=== PATIENT | male | born 1995 | race Caucasian/White ===

== ENCOUNTER → 2019-09-21 11:38 | Outpatient (BNVA) | payer BC, SELFPAY | PROVIDERS: Family Provider Family Medicine; PCP Family Medicine; Visit Provider Nurse Practitioner | DX: J10.1 Influenza due to other identified influenza virus with other respiratory manifestations (principal); R05 Cough | CPT/HCPCS: 87804 ==

== ENCOUNTER → 2020-06-29 14:56 | Outpatient (BNVA) | payer BC, SELFPAY | PROVIDERS: Family Provider Family Medicine; PCP Family Medicine; Visit Provider Nurse Practitioner Family | DX: Z20.828 Contact with and (suspected) exposure to other viral communicable diseases (principal) | CPT/HCPCS: 87635 ==

== ENCOUNTER → 2020-08-17 14:48 | Outpatient (BNVA) | payer BC, SELFPAY | PROVIDERS: Family Provider Family Medicine; PCP Family Medicine; Visit Provider Nurse Practitioner Family | DX: Z20.828 Contact with and (suspected) exposure to other viral communicable diseases (principal); J06.9 Acute upper respiratory infection, unspecified | CPT/HCPCS: 87635 ==

== ENCOUNTER 2022-06-06 10:13 | Outpatient (RCR) | payer BC, SELFPAY | END 2022-06-14 16:48 | disposition home or self-care (01) | LOC: SPT 10:13 | PROVIDERS: PCP Family Medicine; Visit Provider Clinical Nurse Specialist Adult Health | DX: M54.16 Radiculopathy, lumbar region (principal) | CPT/HCPCS: 97161 ==

== ENCOUNTER → 2022-09-09 10:46 | Outpatient (BNVA) | payer OTHER, SELFPAY | PROVIDERS: PCP Family Medicine; Visit Provider Clinical Nurse Specialist Adult Health | DX: E03.9 Hypothyroidism, unspecified (principal); E78.00 Pure hypercholesterolemia, unspecified; E11.9 Type 2 diabetes mellitus without complications; I10 Essential (primary) hypertension | CPT/HCPCS: 80053; 80061; 82040; 82672; 83036; 84270; 84403; 84443; 85025 ==

== ENCOUNTER → 2022-10-12 14:44 | Outpatient (BNVA) | payer OTHER, SELFPAY | PROVIDERS: PCP Family Medicine; Visit Provider Family Medicine | DX: I10 Essential (primary) hypertension (principal); E11.9 Type 2 diabetes mellitus without complications; E03.9 Hypothyroidism, unspecified; E78.00 Pure hypercholesterolemia, unspecified | CPT/HCPCS: 80053; 80061; 83036; 84443 ==

== ENCOUNTER 2025-01-13 04:35 | Emergency (ER) | payer BC, SELFPAY ==
[2025-01-13] VITALS (7 sets, daily range): BP systolic 105–138; BP diastolic 55–91; PULSE 70–122; RESP 14–20; TEMP 36.4; O2SAT 93–98; BMI 39.3
--- NOTE | 2025-01-13 05:06 | US_ITS ---
WS: [id number] RIGHT UPPER QUADRANT ULTRASOUND HISTORY: ruq pain COMPARISON: None available. Liver: 14.8 cm in length. Normal size liver with moderate to severe hepatic steatosis. Coarse echotexture of the liver. The entire liver is not well visualized. Portal Vein: Normal hepatopetal flow with monophasic waveform. Gallbladder: Normally distended gallbladder with no stones or wall thickening. CBD: 0.5 cm Pancreas: Nonvisualized. Right kidney: 13.0 cm in length. Normal size and echogenicity. No hydronephrosis or mass. Aorta and IVC: Limited. No ascites. US/US gall bladder [id number] IMPRESSION: 1. Exam limited by body habitus. 2. Negative gallbladder. 3. Normal size liver with moderate to severe hepatic steatosis.
--- NOTE | 2025-01-13 05:07 | W.ED.ABDPA2 ---
Documented by User: Eran Carlos Samy, 01/13/25 05:11 HPI - Abdominal Pain General: Chief Complaint: Abdominal Pain Stated Complaint: ABD Pain\V\D\Hives Time Seen by Provider: 01/13/25 04:56 History of Present Illness: 30-year-old male patient with history of pulmonary stenosis. He also has diabetes and hypercholesterolemia and hypertension. He presents with right upper quadrant pain, several episodes of vomiting over the last 24 hours. He states that his symptoms started with diarrhea. He had multiple episodes of diarrhea day night, transition to vomiting yesterday with multiple episodes of vomiting. He has intermittent cramping right upper quadrant pain radiating into his back. He also broke out into hives this morning upon waking. The hives are quite itchy and widespread. He had been taking Zofran for the nausea and vomiting but when that was not working, his mom gave him the promethazine. He has had promethazine before without allergic reaction. He was told at 1 point that his liver enzymes were high, but he is not sure how high. No history of abdominal surgery. Related Data Home Medications ?Medication ?Instructions ?Recorded ?Confirmed diclofenac sodium 75 mg 75 mg PO BID 01/13/25 01/13/25 tablet,delayed release glyburide 5 mg tablet 5 mg PO QAM 01/13/25 01/13/25 olmesartan 40 mg-amlodipine 10 1 tab PO DAILY 01/13/25 01/13/25 mg-hydrochlorothiazide 25 mg tablet pantoprazole 20 mg tablet,delayed 20 mg PO DAILY 01/13/25 01/13/25 release tirzepatide 2.5 mg/0.5 mL 2.45 mg SUBCUT Q7D 01/13/25 01/13/25 subcutaneous pen injector (Roxanne) Previous Rx's ?Medication ?Instructions ?Recorded metformin 500 mg tablet 500 mg PO BID #180 tabs 06/29/22 flash glucose scanning reader #1 ea 10/18/22 (FreeStyle Laura 2 Elk) flash glucose sensor (FreeStyle #2 ea 10/18/22 Laura 2 Sensor kit) metoprolol tartrate 25 mg tablet 25 mg PO BID #180 tabs 01/15/24 ondansetron 4 mg disintegrating 4 mg PO Q6H PRN nausea and 01/13/25 tablet vomiting #14 tabs Allergies Allergy/AdvReac Type Severity Reaction Status Date / Time No Known Allergies Allergy Verified 09/09/22 10:18 PFSH ED PFSH: Medical History Diabetes HTN (hypertension) with goal to be determined Hypercholesteremia Hypothyroidism Surgical History Hx of left knee surgery Family History Other Diabetes Denies family history of CAD (coronary artery disease) Hypertension Social History Smoking and tobacco/nicotine status: current every day tobacco/nicotine user smokeless tobacco Alcohol intake: never Physical Exam Const: COMMON NORMALS: no acute distress GENERAL APPEARANCE: cooperative; not ill appearing and not frail appearing HENMT: COMMON NORMALS: normocephalic, atraumatic and Normal external nose present HEAD & SCALP: normocephalic and atraumatic FACE & SINUS: normal facial exam and face symmetric NOSE: Normal external nose present Eye: COMMON NORMALS: Equal, round and reactive pupils present and EOMs intact bilaterally PUPIL: Yes Equal, round and reactive pupils present Neck/C-Spine: GENERAL: Yes trachea midline Chest: CHEST: Yes Symmetrical chest wall rise Resp: COMMON NORMALS: normal respiratory effort, No retractions, No use of accessory muscles and clear to auscultation bilaterally AUSCULTATION: clear to auscultation bilaterally Cardio: COMMON NORMALS: regular rhythm RATE: tachycardic RHYTHM: regular rhythm GI: COMMON NORMALS: Normal to inspection, nondistended, normoactive bowel sounds present PALPATION: Yes Tenderness to palpation present (GI) Details: RUQ Extremity: COMMON NORMALS: no pedal edema Neuro: FELI COMA SCALE: document GCS findings [place] coma scale eye opening: Spontaneous Feli coma scale verbal response: Orientated [place] coma scale motor response: Obey commands Feli coma scale total score: 15 SENSORY EXAM: Yes extremities (intact) Psych: COMMON NORMALS: speech normal SPEECH: Yes normal speech Skin: COMMON NORMALS: no rashes or lesions noted GENERAL SKIN EXAM: no rashes or lesions noted Course Vital Signs: Vital signs: Vital Signs Temperature 97.6 F 01/13/25 04:57 Pulse Rate 74 01/13/25 10:18 Respiratory Rate 20 H 01/13/25 07:00 Blood Pressure 126/76 01/13/25 10:18 Pulse Oximetry 95 01/13/25 10:18 Oxygen Delivery Me thod Room Air 01/13/25 09:05 MDM - Abdominal Pain Medical Decision Making Labs and imaging are pending. He is given IV fluid, Toradol, Benadryl, Zofran, etc. He will be checked out at shift change. Lab Data 01/13/25 05:30 01/13/25 05:30 Labs/Radiology: Radiology Impressions Gallbladder Ultrasound 01/13/25 05:06 IMPRESSION: 1. Exam limited by body habitus. 2. Negative gallbladder. 3. Normal size liver with moderate to severe hepatic steatosis. Chest CTA 01/13/25 06:07 IMPRESSION: 1. Small amount of motion causing artifact in the inferior lingular artery. No pulmonary embolus felt to be present. 2. No acute process identified. Laboratory Results WBC 20.64 10^3/uL (3.29-11.43) H 01/13/25 05:30 RBC 5.69 10^6/uL (3.85-5.65) H 01/13/25 05:30 Hgb 17.30 g/dL (11.27-16.99) H 01/13/25 05:30 Hct 49.3 % (37-53) 01/13/25 05:30 MCV 86.6 fl (82-101) 01/13/25 05:30 MCH 30.4 pg (27-33) 01/13/25 05:30 MCHC 35.1 g/dL (30-55) 01/13/25 05:30 RDW 11.9 % (12.1-15.1) L 01/13/25 05:30 Plt Count 372 10^3/cmm (157-399) 01/13/25 05:30 MPV 10.7 fL (7.4-10.4) H 01/13/25 05:30 Neut % (Auto) 82.9 % 01/13/25 05:30 Lymph % (Auto) 10.6 % 01/13/25 05:30 Anderson % (Auto) 5.4 % 01/13/25 05:30 Eos % (Auto) 0.7 % 01/13/25 05:30 Baso % (Auto) 0.1 % 01/13/25 05:30 Neut # (Auto) 17.09 10^3/uL (1.8-7.7) H 01/13/25 05:30 Lymph # (Auto) 2.2 10^3/uL (0.8-4.8) 01/13/25 05:30 Anderson # (Auto) 1.1 10^3/uL (0.2-0.9) H 01/13/25 05:30 Eos # (Auto) 0.1 10^3/uL (0.0-0.8) 01/13/25 05:30 Baso # (Auto) 0.0 10^3/uL (0.0-0.1) 01/13/25 05:30 Nucleated RBC % (auto) 0 % 01/13/25 05:30 Nucleated RBCs # 0.0 /100WBC 01/13/25 05:30 D-Dimer 11.81 ug/mLFEU (0-0.59) H 01/13/25 05:30 Sodium 135 mmol/L (136-145) L 01/13/25 05:30 Potassium 4.7 mmol/L (3.5-5.1) 01/13/25 05:30 Chloride 97 mmol/L (98-107) L 01/13/25 05:30 Carbon Dioxide 20 mmol/L (22-29) L 01/13/25 05:30 Anion Gap 22.7 (5-19) H 01/13/25 05:30 BUN 18 mg/dL (6-20) 01/13/25 05:30 Creatinine 1.4 mg/dL (0.7-1.2) H 01/13/25 05:30 GFR Calculation 60.3 mL/min (90-130) L 01/13/25 05:30 Glucose 273 mg/dL (65-115) H 01/13/25 05:30 Calculated Osmolality 292 mOsm/kg (285-295) 01/13/25 05:30 Lactic Acid 2.6 mmol/L (0.5-2.2) H 01/13/25 05:30 Lactic Acid (Sepsis) 1.9 mmol/L (0.5-2.2) 01/13/25 09:32 Calcium 10.3 mg/dL (8.5-10.5) 01/13/25 05:30 Total Bilirubin 0.8 mg/dL (0.15-1.2) 01/13/25 05:30 AST 64 U/L (0-40) H 01/13/25 05:30 ALT 139 U/L (0-41) H 01/13/25 05:30 Alkaline Phosphatase 83 U/L (40-130) 01/13/25 05:30 Troponin T Baseline < 6 ng/L (0-15) 01/13/25 05:30 Troponin T 120 Minute < 6.0 ng/L (0-15) 01/13/25 07:38 Delta Troponin T 0 ABS# (0-10) 01/13/25 07:38 C-Reactive Protein 23.1 mg/L (0.0-4.9) H 01/13/25 05:30 Total Protein 7.9 g/dL (6.6-8.7) 01/13/25 05:30 Albumin 4.8 g/dL (3.5-5.2) 01/13/25 05:30 Globulin 3.1 g/dL (1.3-4.6) 01/13/25 05:30 Lipase 43 U/L (13-60) 01/13/25 05:30 TSH 6.05 uIU/mL (0.27-4.20) H 01/13/25 05:30 Urine Color Dark yellow (Yellow) A 01/13/25 05:55 Urine Appearance Cloudy (CLEAR) A 01/13/25 05:55 Urine pH 5.0 (5-7) 01/13/25 05:55 Ur Specific [place] 1.030 (1.005-1.030) 01/13/25 05:55 Urine Protein 2+ (Negative) A 01/13/25 05:55 Urine Glucose (UA) 2+ (Normal) H 01/13/25 05:55 Urine Ketones 1+ (Negative) H 01/13/25 05:55 Urine Blood Negative (Negative) 01/13/25 05:55 Urine Nitrate Negative (Negative) 01/13/25 05:55 Urine Bilirubin 2+ (Negative) H 01/13/25 05:55 Urine Urobilinogen 1.0 mg/dL (Negative) 01/13/25 05:55 Ur Leukocyte Esterase Trace (Negative) A 01/13/25 05:55 Urine RBC 0-2 /hpf (0-2) 01/13/25 05:55 Urine WBC 0-5 /hpf (0-5) 01/13/25 05:55 Ur Squamous Epith Cells 0-5 /hpf (0-5) 01/13/25 05:55 Calcium Oxalate Crystal 0-4 /hpf H 01/13/25 05:55 Amorphous Sediment Not Reportable 01/13/25 05:55 Urine Bacteria None seen /hpf (NONE) 01/13/25 05:55 Hyaline Casts 93.09 /lpf 01/13/25 05:55 Urine Mucus Trace /hpf 01/13/25 05:55 Hepatitis A IgM Ab Non-reactive (Nonreactive) 01/13/25 05:30 Hep Bs Antigen Non-reactive (Nonreactive) 01/13/25 05:30 Hep B Core IgM Ab Non-reactive (Nonreactive) 01/13/25 05:30 Hepatitis C Antibody Non-reactive (Nonreactive) 01/13/25 05:30 Discharge Plan Discharge Patient Disposition: Home Clinical Impression: Gastroenteritis, Abdominal pain Condition: Stable Prescriptions: New ondansetron 4 mg tablet,disintegrating 4 mg PO Q6H PRN (Reason: nausea and vomiting) Qty: 14 0RF No Action metformin 500 mg tablet 500 mg PO BID Qty: 180 3RF (DME) FreeStyle Laura 2 Elk Misc See Rx Instructions .Route Qty: 1 0RF Rx Instructions: to use with the freestyle sensor (DME) FreeStyle Laura 2 Sensor Kit See Rx Instructions .Route Qty: 2 12RF Rx Instructions: to use with the freestyle reader every 14 days metoprolol tartrate 25 mg tablet 25 mg PO BID Qty: 180 3RF glyburide 5 mg tablet 5 mg PO QAM pantoprazole 20 mg tablet,delayed release (DR/EC) 20 mg PO DAILY diclofenac sodium 75 mg tablet,delayed release (DR/EC) 75 mg PO BID dikmtjxrif-degqyajtg-blazsfifw 40-10-25 mg tablet 1 tab PO DAILY Mounjaro 2.5 mg/0.5 mL pen injector 2.45 mg SUBCUT Q7D Discharge Orders: Discharge ED (Routine); Ordered 01/13/25 Ordered By: Michael Morataya Discharge Diet: Usual diet Discharge Activity: Resume usual activity Patient Instructions: Abdominal Pain (ED), Opioid Safety, Pain Management Activity Restrictions/Additional Instructions: Thank you for choosing [facility] for your healthcare needs today. It is very important that you follow up as instructed or that you return to the Emergency Department should you have concerns or if your condition changes or worsens in any way. You are seen in the emergency room for persistent nausea and vomiting. Your white count was elevated there was some increase in your creatinine as well as mild elevation of your liver enzymes. There is no sign of acute cholecystitis (infection of your gallbladder). There were no gallstones noted. Ultrasound did show mild fatty liver additionally ultrasound of your legs was done and this did not show any blood clots. We also did a scan of your chest there was no evidence of clot in the lung either. Continue current medications you are given promethazine for nausea and vomiting. Encourage fluid intake. Follow-up with your doctor within the next week you may need further evaluation for biliary dyskinesia. Stand Alone Forms: Work/School Release Print Language: Vietnamese Sign Out Sign Out Data: Patient Sign Out occurred on 01/13/25 at 05:23. Patient's care was discussed, and care was transferred from Eran Pablo DO to Michael Morataya DO. Coding Level of Care Code ED Br[facility] Former for Chg Fwd Documented by User: Michael Morataya DO 01/13/25 13:25 HPI - Abdominal Pain General: Chief Complaint: Abdominal Pain Stated Complaint: ABD Pain\V\D\Hives Time Seen by Provider: 01/13/25 04:56 Related Data Home Medications ?Medication ?Instructions ?Recorded ?Confirmed diclofenac sodium 75 mg 75 mg PO BID 01/13/25 01/13/25 tablet,delayed release glyburide 5 mg tablet 5 mg PO QAM 01/13/25 01/13/25 olmesartan 40 mg-amlodipine 10 1 tab PO DAILY 01/13/25 01/13/25 mg-hydrochlorothiazide 25 mg tablet pantoprazole 20 mg tablet,delayed 20 mg PO DAILY 01/13/25 01/13/25 release tirzepatide 2.5 mg/0.5 mL 2.45 mg SUBCUT Q7D 01/13/25 01/13/25 subcutaneous pen injector (Roxanne) Previous Rx's ?Medication ?Instructions ?Recorded metformin 500 mg tablet 500 mg PO BID #180 tabs 06/29/22 flash glucose scanning reader #1 ea 10/18/22 (FreeStyle Laura 2 Elk) flash glucose sensor (FreeStyle #2 ea 10/18/22 Laura 2 Sensor kit) metoprolol tartrate 25 mg tablet 25 mg PO BID #180 tabs 01/15/24 ondansetron 4 mg disintegrating 4 mg PO Q6H PRN nausea and 01/13/25 tablet vomiting #14 tabs Allergies Allergy/AdvReac Type Severity Reaction Status Date / Time No Known Allergies Allergy Verified 09/09/22 10:18 COUNTS INCLUDE 234 BEDS AT THE [facility] ED PFSH: Medical History Diabetes HTN (hypertension) with goal to be determined Hypercholesteremia Hypothyroidism Surgical History Hx of left knee surgery Family History Other Diabetes Denies family history of CAD (coronary artery disease) Hypertension Social History Smoking and tobacco/nicotine status: current every day tobacco/nicotine user smokeless tobacco Alcohol intake: never Physical Exam Neuro: FELI COMA SCALE: document GCS findings Feli coma scale total score: 15 Course Vital Signs: Vital signs: Vital Signs Temperature 97.6 F 01/13/25 04:57 Pulse Rate 74 01/13/25 10:18 Respiratory Rate 20 H 01/13/25 07:00 Blood Pressure 126/76 01/13/25 10:18 Pulse Oximetry 95 01/13/25 10:18 Oxygen Delivery Me thod Room Air 01/13/25 09:05 MDM - Abdominal Pain Medical Decision Making Labs and imaging are pending. He is given IV fluid, Toradol, Benadryl, Zofran, etc. He will be checked out at shift change. Care assumed at change of shift UA is negative. He is feeling much better after fluids. White count is markedly elevated but he has no abdominal pain at this time. Will discharge patient home after the fluids he has improved he had a mild acute kidney injury and a bit of anion gap initially. Very slight elevation of his liver functions but no sign of acute cholecystitis on imaging. patient had an elevated D-dimer but venous duplex and CT of the chest were negative. In discussing the patient states he has had episodes like this before encouraged him to follow-up with his primary care doctor he may need further evaluation for biliary dyskinesia. Lactic acid was mildly elevated but I do not believe the patient is septic this time I believe the lactic acid elevation white count ovation are due to volume depletion Medical Records I reviewed the patient's medical records. Lab Data I reviewed the patient's lab results. 01/13/25 05:30 01/13/25 05:30 Labs/Radiology: Radiology Impressions Gallbladder Ultrasound 01/13/25 05:06 IMPRESSION: 1. Exam limited by body habitus. 2. Negative gallbladder. 3. Normal size liver with moderate to severe hepatic steatosis. Chest CTA 01/13/25 06:07 IMPRESSION: 1. Small amount of motion causing artifact in the inferior lingular artery. No pulmonary embolus felt to be present. 2. No acute process identified. Laboratory Results WBC 20.64 10^3/uL (3.29-11.43) H 01/13/25 05:30 RBC 5.69 10^6/uL (3.85-5.65) H 01/13/25 05:30 Hgb 17.30 g/dL (11.27-16.99) H 01/13/25 05:30 Hct 49.3 % (37-53) 01/13/25 05:30 MCV 86.6 fl (82-101) 01/13/25 05:30 MCH 30.4 pg (27-33) 01/13/25 05:30 MCHC 35.1 g/dL (30-55) 01/13/25 05:30 RDW 11.9 % (12.1-15.1) L 01/13/25 05:30 Plt Count 372 10^3/cmm (157-399) 01/13/25 05:30 MPV 10.7 fL (7.4-10.4) H 01/13/25 05:30 Neut % (Auto) 82.9 % 01/13/25 05:30 Lymph % (Auto) 10.6 % 01/13/25 05:30 Anderson % (Auto) 5.4 % 01/13/25 05:30 Eos % (Auto) 0.7 % 01/13/25 05:30 Baso % (Auto) 0.1 % 01/13/25 05:30 Neut # (Auto) 17.09 10^3/uL (1.8-7.7) H 01/13/25 05:30 Lymph # (Auto) 2.2 10^3/uL (0.8-4.8) 01/13/25 05:30 Anderson # (Auto) 1.1 10^3/uL (0.2-0.9) H 01/13/25 05:30 Eos # (Auto) 0.1 10^3/uL (0.0-0.8) 01/13/25 05:30 Baso # (Auto) 0.0 10^3/uL (0.0-0.1) 01/13/25 05:30 Nucleated RBC % (auto) 0 % 01/13/25 05:30 Nucleated RBCs # 0.0 /100WBC 01/13/25 05:30 D-Dimer 11.81 ug/mLFEU (0-0.59) H 01/13/25 05:30 Sodium 135 mmol/L (136-145) L 01/13/25 05:30 Potassium 4.7 mmol/L (3.5-5.1) 01/13/25 05:30 Chloride 97 mmol/L (98-107) L 01/13/25 05:30 Carbon Dioxide 20 mmol/L (22-29) L 01/13/25 05:30 Anion Gap 22.7 (5-19) H 01/13/25 05:30 BUN 18 mg/dL (6-20) 01/13/25 05:30 Creatinine 1.4 mg/dL (0.7-1.2) H 01/13/25 05:30 GFR Calculation 60.3 mL/min (90-130) L 01/13/25 05:30 Glucose 273 mg/dL (65-115) H 01/13/25 05:30 Calculated Osmolality 292 mOsm/kg (285-295) 01/13/25 05:30 Lactic Acid 2.6 mmol/L (0.5-2.2) H 01/13/25 05:30 Lactic Acid (Sepsis) 1.9 mmol/L (0.5-2.2) 01/13/25 09:32 Calcium 10.3 mg/dL (8.5-10.5) 01/13/25 05:30 Total Bilirubin 0.8 mg/dL (0.15-1.2) 01/13/25 05:30 AST 64 U/L (0-40) H 01/13/25 05:30 ALT 139 U/L (0-41) H 01/13/25 05:30 Alkaline Phosphatase 83 U/L (40-130) 01/13/25 05:30 Troponin T Baseline < 6 ng/L (0-15) 01/13/25 05:30 Troponin T 120 Minute < 6.0 ng/L (0-15) 01/13/25 07:38 Delta Troponin T 0 ABS# (0-10) 01/13/25 07:38 C-Reactive Protein 23.1 mg/L (0.0-4.9) H 01/13/25 05:30 Total Protein 7.9 g/dL (6.6-8.7) 01/13/25 05:30 Albumin 4.8 g/dL (3.5-5.2) 01/13/25 05:30 Globulin 3.1 g/dL (1.3-4.6) 01/13/25 05:30 Lipase 43 U/L (13-60) 01/13/25 05:30 TSH 6.05 uIU/mL (0.27-4.20) H 01/13/25 05:30 Urine Color Dark yellow (Yellow) A 01/13/25 05:55 Urine Appearance Cloudy (CLEAR) A 01/13/25 05:55 Urine pH 5.0 (5-7) 01/13/25 05:55 Ur Specific [place] 1.030 (1.005-1.030) 01/13/25 05:55 Urine Protein 2+ (Negative) A 01/13/25 05:55 Urine Glucose (UA) 2+ (Normal) H 01/13/25 05:55 Urine Ketones 1+ (Negative) H 01/13/25 05:55 Urine Blood Negative (Negative) 01/13/25 05:55 Urine Nitrate Negative (Negative) 01/13/25 05:55 Urine Bilirubin 2+ (Negative) H 01/13/25 05:55 Urine Urobilinogen 1.0 mg/dL (Negative) 01/13/25 05:55 Ur Leukocyte Esterase Trace (Negative) A 01/13/25 05:55 Urine RBC 0-2 /hpf (0-2) 01/13/25 05:55 Urine WBC 0-5 /hpf (0-5) 01/13/25 05:55 Ur Squamous Epith Cells 0-5 /hpf (0-5) 01/13/25 05:55 Calcium Oxalate Crystal 0-4 /hpf H 01/13/25 05:55 Amorphous Sediment Not Reportable 01/13/25 05:55 Urine Bacteria None seen /hpf (NONE) 01/13/25 05:55 Hyaline Casts 93.09 /lpf 01/13/25 05:55 Urine Mucus Trace /hpf 01/13/25 05:55 Hepatitis A IgM Ab Non-reactive (Nonreactive) 01/13/25 05:30 Hep Bs Antigen Non-reactive (Nonreactive) 01/13/25 05:30 Hep B Core IgM Ab Non-reactive (Nonreactive) 01/13/25 05:30 Hepatitis C Antibody Non-reactive (Nonreactive) 01/13/25 05:30 All radiology interpretation(s) finalized by discharge Discharge Plan Discharge Patient Disposition: Home Clinical Impression: Gastroenteritis, Abdominal pain Condition: Stable Prescriptions: New ondansetron 4 mg tablet,disintegrating 4 mg PO Q6H PRN (Reason: nausea and vomiting) Qty: 14 0RF No Action metformin 500 mg tablet 500 mg PO BID Qty: 180 3RF (DME) FreeStyle Laura 2 Elk Misc See Rx Instructions .Route Qty: 1 0RF Rx Instructions: to use with the iLyngostyle sensor (DME) FreeStyle Laura 2 Sensor Kit See Rx Instructions .Route Qty: 2 12RF Rx Instructions: to use with the freestyle reader every 14 days metoprolol tartrate 25 mg tablet 25 mg PO BID Qty: 180 3RF glyburide 5 mg tablet 5 mg PO QAM pantoprazole 20 mg tablet,delayed release (DR/EC) 20 mg PO DAILY diclofenac sodium 75 mg tablet,delayed release (DR/EC) 75 mg PO BID qsfnlknodu-gcpdnmrdw-tkwmycxti 40-10-25 mg tablet 1 tab PO DAILY Mounjaro 2.5 mg/0.5 mL pen injector 2.45 mg SUBCUT Q7D Discharge Orders: Discharge ED (Routine); Ordered 01/13/25 Ordered By: Michael Morataya Discharge Diet: Usual diet Discharge Activity: Resume usual activity Patient Instructions: Abdominal Pain (ED), Opioid Safety, Pain Management Activity Restrictions/Additional Instructions: Thank you for choosing [facility] for your healthcare needs today. It is very important that you follow up as instructed or that you return to the Emergency Department should you have concerns or if your condition changes or worsens in any way. You are seen in the emergency room for persistent nausea and vomiting. Your white count was elevated there was some increase in your creatinine as well as mild elevation of your liver enzymes. There is no sign of acute cholecystitis (infection of your gallbladder). There were no gallstones noted. Ultrasound did show mild fatty liver additionally ultrasound of your legs was done and this did not show any blood clots. We also did a scan of your chest there was no evidence of clot in the lung either. Continue current medications you are given promethazine for nausea and vomiting. Encourage fluid intake. Follow-up with your doctor within the next week you may need further evaluation for biliary dyskinesia. Stand Alone Forms: Work/School Release Print Language: Vietnamese Sign Out Sign Out Data: Patient Sign Out occurred on 01/13/25 at 05:23. Patient's care was discussed, and care was transferred from Eran Pablo DO to Michael Morataya DO. Coding Level of Care Code ED [facility] Former for Matilda Vincent
--- NOTE | 2025-01-13 05:19 | ECG_ITS ---
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 Measurements Intervals [place] Rate: 110 P: 69 OR: 176 QRS: 15 QRSD: 98 T: 69 QT: 320 QTc: 433 Interpretive Statements SINUS TACHYCARDIA Compared to ECG 08/03/2016 09:17:43 Sinus rhythm no longer present Electronically Signed On 01-14-2025 17:28:48 CDT by Karl Pal M.D. [email or web address]
[2025-01-13 05:40] LABS: Basophils % 0.1 %; Eosinophils # 0.1 10^3/uL (0.0-0.8); Eosinophils % 0.7 %; Hematocrit 49.3 % (37-53); Lymphocytes # 2.2 10^3/uL (0.8-4.8); Lymphocytes % 10.6 %; Mean Corpuscular HGB Conc 35.1 g/dL (30-55); Mean Corpuscular Hemoglobin 30.4 pg (27-33); Mean Corpuscular Volume 86.6 fl (82-101); Mean Platelet Volume 10.7 fL (7.4-10.4); Monocytes # 1.1 10^3/uL (0.2-0.9); Monocytes % 5.4 %; Neutrophils # 17.09 10^3/uL (1.8-7.7); Neutrophils % 82.9 %; Nucleated Red Blood Cells % 0 %; Platelet Count 372 10^3/cmm (157-399); Red Blood Count 5.69 10^6/uL (3.85-5.65); Red Cell Distribution Width 11.9 % (12.1-15.1); White Blood Count 20.64 10^3/uL (3.29-11.43)
[2025-01-13] MEDS: sodium chloride 0.9% 1,000 ML 999 ML IV ×2 (05:45→05:48)
[2025-01-13] MEDS: ondansetron 2 mg/ML SDV 2 mL 4 MG IVP (05:48)
[2025-01-13] MEDS: diphenhydrAMINE 50 mg/mL SDV 1mL 25 MG IVP (05:50)
[2025-01-13] MEDS: ketorolac 30 mg/mL INJ IVP (05:52)
[2025-01-13] MEDS: morphine 4 mg/mL SDV 1 mL IVP (05:54)
[2025-01-13 06:00] LABS: D Dimer 11.81 ug/mLFEU (0-0.59)
[2025-01-13 06:03] LABS: Troponin(5th) Baseline < 6 ng/L (0-15)
--- NOTE | 2025-01-13 06:07 | USCV_ITS ---
Lucas Rodgers Age: 30 Gender: M : 1995 Exam Date: 01/13/2025 08:28 Ordering Phys: Michael Morataya DO Technologist: Exam [place] [facility] [place]: bilat edma HISTORY: Lower extremity edema. PROCEDURES: The venous duplex Doppler examination of both lower extremities was performed in the standard fashion. Venous duplex imaging was performed in only the left lower extremity. FINDINGS: Normal 2-D Doppler and augmentation and compressibility throughout the lower extremity venous structures. Additional imaging through the proximal calf veins also reveals no thrombus. Limited evaluation of the greater saphenous vein is patent with no thrombus. CONCLUSIONS No DVT bilateral lower extremities. Dr. Gosia Carvajal DO (Electronically Signed) Final Date: 13 January 2025 09:14 S
--- NOTE | 2025-01-13 06:07 | CTR_ITS ---
PROCEDURE INFORMATION: Exam: CTA Chest With Contrast Exam date and time: 01/13/2025 6:19 AM Age: 30 years old Clinical indication: Abnormal findings; Abnormal diagnostic tests; Elevated d-dimer; Tachycardia with dimer of 11.81. TECHNIQUE: Imaging protocol: Computed tomographic angiography of the chest with contrast. Exam focused on the arteries. 3D rendering (Not supervised by radiologist): MIP and/or 3D reconstructed images were created by the technologist. Total images: 1 Radiation optimization: All CT scans at this facility use at least one of these dose optimization techniques: automated exposure control; mA and/or kV adjustment per patient size (includes targeted exams where dose is matched to clinical indication); or iterative reconstruction. Contrast material: OMNI 350; Contrast volume: 75 ml; Contrast route: INTRAVENOUS (IV); COMPARISON: No relevant prior studies available. RADIATION DOSE METRICS: Total DLP (mGy-cm): 494.03 FINDINGS: Pulmonary arteries: See Other arteries finding. Aorta: Unremarkable. No aortic aneurysm. No aortic dissection. Other arteries: Small amount of motion causing artifact in the inferior lingular artery. No pulmonary embolus felt to be present. Lungs: Unremarkable. No consolidation. No masses. Pleural spaces: Unremarkable. No pneumothorax. No pleural effusion. Heart: Unremarkable. No cardiomegaly. No pericardial effusion. Lymph nodes: Unremarkable. No enlarged lymph nodes. Bones/joints: Unremarkable. No acute fracture. Soft tissues: Unremarkable. CT/CT angio chest PE protcl [id number] IMPRESSION: 1. Small amount of motion causing artifact in the inferior lingular artery. No pulmonary embolus felt to be present. 2. No acute process identified.
[2025-01-13 06:09] LABS: Hepatitis A Antibody IgM Non-Reactive (Nonreactive); Hepatitis B Core IgM Non-Reactive (Nonreactive); Hepatitis B Surface Antigen Non-Reactive (Nonreactive); Hepatitis C Virus Antibody Non-Reactive (Nonreactive)
[2025-01-13 06:12] LABS: Alanine Aminotransferase 139 U/L (0-41); Albumin Level 4.8 g/dL (3.5-5.2); Alkaline Phosphatase 83 U/L (40-130); Anion Gap 22.7 (5-19); Aspartate Amino Transferase 64 U/L (0-40); Blood Urea Nitrogen 18 mg/dL (6-20); C Reactive Protein 23.1 mg/L (0.0-4.9); Calcium 10.3 mg/dL (8.5-10.5); Carbon Dioxide 20 mmol/L (22-29); Chloride 97 mmol/L (98-107); Creatinine Clr Calc Pharmacy 129.5164; Globulin 3.1 g/dL (1.3-4.6); Glomerular Filtration Rate 60.3 mL/min (90-130); Glucose 273 mg/dL (65-115); Lipase 43 U/L (13-60); Osmolality Calculated 292 mOsm/kg (285-295); Potassium 4.7 mmol/L (3.5-5.1); Sodium 135 mmol/L (136-145); Thyroid Stimulating Hormone 6.05 uIU/mL (0.27-4.20); Total Bilirubin 0.8 mg/dL (0.15-1.2); Total Protein 7.9 g/dL (6.6-8.7)
[2025-01-13] MEDS: iohexol 350 mg/mL 500 mL Btl (per mL) IV (06:20)
[2025-01-13 06:27] LABS: Bilirubin Urine 2+ (Negative); Blood Urine Negative (Negative); Glucose Urine UA 2+ (Normal); Ketones Urine 1+ (Negative); Leukocyte Esterase Urine Trace (Negative); Nitrate Urine Negative (Negative); Protein Urine 2+ (Negative); Urine Appearance Cloudy (CLEAR); Urine Color Dark Yellow (Yellow)
[2025-01-13 06:33] LABS: Add Urine Microscopic? YES; Bacteria Urine None Seen /hpf; Hyaline Casts Urine 93.09 /lpf; RBC Urine 0-2 /hpf (0-2); Squamous Epithelial Cell Urine 0-5 /hpf (0-5); WBC Urine 0-5 /hpf (0-5)
[2025-01-13 06:33] LABS: Lactic Sepsis W/Reflex 2.6 mmol/L (0.5-2.2)
[2025-01-13 07:15] LABS: UA Slide Review UA Slide Review Perf
[2025-01-13 07:16] LABS: Add Urine Culture? No; Calcium Oxalate Crystals Urine 0-4 /hpf; Mucus Urine TRACE /hpf
--- NOTE | 2025-01-13 07:26 | ECG_ITS ---
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 Measurements Intervals [place] Rate: 78 P: 18 WI: 202 QRS: -2 QRSD: 101 T: 6 QT: 363 QTc: 413 Interpretive Statements SINUS RHYTHM LOW QRS VOLTAGE IN PRECORDIAL LEADS [QRS DEFLECTION < 1.0 mV IN CHEST LEADS] Compared to ECG 01/13/2025 05:23:28 Low QRS voltage now present Sinus tachycardia no longer present Electronically Signed On 01-14-2025 17:49:36 CDT by Karl Pal M.D. [email or web address]
[2025-01-13 08:00] LABS: Troponin 5 2HR < 6.0 ng/L (0-15); Troponin 5 2HR Delta 0 ABS# (0-10)
[2025-01-13 08:08] LABS: Reflex Lactate Order REFLEX LACTIC ORDERD
[2025-01-13 10:03] LABS: Lactic Acid level (Lactate) 1.9 mmol/L (0.5-2.2)
== END 2025-01-13 10:18 | disposition home or self-care (01) ==
PROVIDERS: Emergency Medicine; Emergency Provider Family Medicine
DX: K52.9 Noninfective gastroenteritis and colitis, unspecified (principal); R10.9 Unspecified abdominal pain; Z79.84 Long term (current) use of oral hypoglycemic drugs; F17.290 Nicotine dependence, other tobacco product, uncomplicated; E11.9 Type 2 diabetes mellitus without complications; I10 Essential (primary) hypertension
CPT/HCPCS: 36415; 71275; 76705; 80053; 80074; 81001; 83605; 83690; 84443; 84484; 85025; 85378; 86140; 87040; 93005; 93970; 96374; 96375; 99285; J1200; J1885; J2270; J2405; J7030